=== PATIENT | female | born 1975 | race African-American/Black ===

== ENCOUNTER 2017-08-18 08:26 | Emergency (ER) | payer SELFPAY ==
[2017-08-18 08:47] VITALS: TEMP 99; BMI 21.4
[2017-08-18 10:10] LABS: BASO % 0.4 % (0-2.0); EOS % 0.1 % (0-4.5); HEMATOCRIT 37.7 % (32.4-45.2); HEMOGLOBIN 12.4 GM/dL (10.7-15.3); LYMPH % 12.9 % (8-40); MCH 30.3 pg (25.7-33.7); MCHC 32.9 g/dl (32.0-36.0); MEAN CELL VOLUME 92.1 fl (80-96); MONO % 12.3 % (3.8-10.2); NEUT % 74.3 % (42.8-82.8); PLATELET COUNT 174 K/MM3 (134-434); RBC 4.09 M/mm3 (3.60-5.2); RDW 12.1 % (11.6-15.6); WHITE BLOOD COUNT 9.7 K/mm3 (4.0-10.0)
--- NOTE | 2017-08-18 10:25 | PDOC ---
History of Present Illness - General History Source: Patient Exam Limitations: No Limitations - History of Present Illness Initial Comments: 08/18/17 11:21 The patient is a 42 year old female, with a significant past medical history of Hepatitis B who presents to the emergency department with thoracic pain for the past 1 day. Patient reports sharp R lower thoracic pain, radiating to R shoulder, 10/10 in severity with no associated symptoms. Pain is exacerbated upon positional changes and deep inspiration. Patient reports pain began yesterday however remained constant throughout this morning. Patient is unable to lay down secondary to the pain and reports to the ED for further evaluation. Patient denied any trauma or injury to the area. Patient denies leg swelling, recent travel Patient denies chest pain, headache or dizziness. Patient denies fever, chills, abdominal pain, nausea, vomit, diarrhea or constipation. Patient denies dysuria, frequency, urgency or hematuria. Patient denies sick contacts. Allergies: NKA Past surgical history: None Social history: None PCP: None <Sherin Guzman - Last Filed: 08/18/17 11:21> - General History Source: Patient Exam Limitations: No Limitations <Radha Nava - Last Filed: 08/20/17 07:57> - General Chief Complaint: Pain Stated Complaint: RT SIDE/ARM PAIN Time Seen by Provider: 08/18/17 09:33 Past History <Sherin Guzman - Last Filed: 08/18/17 11:21> - Past Medical History COPD: No Liver Disease: Yes (hep B) - Suicide/Smoking/Psychosocial Hx Smoking History: Never smoked Have you smoked in the past 12 months: No Hx Alcohol Use: No Drug/Substance Use Hx: No Substance Use Type: None <Radha Nava - Last Filed: 08/20/17 07:57> - Past Medical History Allergies/Adverse Reactions: Allergies Allergy/AdvReac Type Severity Reaction Status Date / Time No Known Allergies Allergy Verified 08/18/17 08:43 Home Medications: Ambulatory Orders Lidocaine 5% Patch [Lidoderm Patch -] 1 patch TP DAILY PRN #30 patch 08/18/17 Methocarbamol [Robaxin -] 500 mg PO TID PRN #21 tablet 08/18/17 Naproxen [Naprosyn -] 500 mg PO BID PRN #14 tablet 08/18/17 Review of Systems - Review of Systems Able to Perform ROS?: Yes Comments:: 08/18/17 11:22 GENERAL/CONSTITUTIONAL: No: fever, chills, weakness, loss of appetite. HEAD, EYES, EARS, NOSE AND THROAT: No: change in vision, ear pain, discharge, sore throat, throat swelling. CARDIOVASCULAR: No: chest pain, lightheadedness, palpitations, syncope RESPIRATORY: No: cough, shortness of breath, wheezing, hemoptysis, stridor. GASTROINTESTINAL: No: nausea, vomiting, abdominal cramping, diarrhea, rectal bleeding, constipation. GENITOURINARY: No: dysuria, hematuria, frequency, urgency, flank pain. MUSCULOSKELETAL: +R thoracic pain. No: back pain, neck pain, joint pain, muscle swelling or pain SKIN: No: lesions, pallor, rash or easy bruising. NEUROLOGIC: No: headache, vertigo, paresthesias, weakness ENDOCRINE: No: unexplained weight gain or loss HEMATOLOGIC/LYMPHATIC: No: anemia, easy bleeding, swelling nodes <Sherin Guzman - Last Filed: 08/18/17 11:21> *Physical Exam - Vital Signs Last Vital Signs Temp Pulse Resp BP Pulse Ox 99 F 92 H 19 111/71 97 08/18/17 08:43 08/18/17 08:43 08/18/17 08:43 08/18/17 08:43 08/18/17 08:43 - Physical Exam Comments: 08/18/17 11:22 GENERAL: The patient is in moderate distress. HEAD: Normal with no signs of trauma. EYES: PERRLA, EOMI, sclera anicteric, conjunctiva clear. ENT: Ears normal, nares patent, oropharynx clear without exudates. Moist mucous membranes. NECK: Normal range of motion, supple without lymphadenopathy, JVD, or masses. LUNGS: Breath sounds equal, clear to auscultation bilaterally. No wheezes, and no crackles. HEART:Regular rate and rhythm, normal S1 and S2 without murmur, rub or gallop. ABDOMEN: Soft, nontender, normoactive bowel sounds. No guarding, no rebound. EXTREMITIES: Normal range of motion, no edema. No clubbing or cyanosis. No erythema, or tenderness. NEUROLOGICAL: Cranial nerves II through XII grossly intact. Normal speech. No focal neurological deficits. MUSCULOSKELETAL: Back nontender to palpation, no CVA tenderness SKIN: Warm, Dry, normal turgor, no rashes or lesions noted. <Sherin Guzman - Last Filed: 08/18/17 11:21> - Vital Signs Last Vital Signs Temp Pulse Resp BP Pulse Ox 99 F 92 H 19 111/71 97 08/18/17 08:43 08/18/17 08:43 08/18/17 08:43 08/18/17 08:43 08/18/17 08:43 <Radha Nava - Last Filed: 08/20/17 07:57> ED Treatment Course - LABORATORY CBC & Chemistry Diagram: 08/18/17 10:03 08/18/17 10:03 - ADDITIONAL ORDERS Additional order review: Laboratory Results 08/18/17 08/18/17 10:03 10:03 Sodium 137 Potassium 3.6 Chloride 104 Carbon Dioxide 27 Anion Gap 6 L BUN 5 L Creatinine 0.6 Creat Clearance w eGFR > 60 Random Glucose 90 Calcium 8.6 Total Bilirubin 1.5 H AST 81 H ALT 67 Alkaline Phosphatase 75 Total Protein 8.1 Albumin 3.9 Serum , Qual Negative 08/18/17 10:03 RBC 4.09 MCV 92.1 MCHC 32.9 RDW 12.1 MPV 9.0 Neutrophils % 74.3 Lymphocytes % 12.9 Monocytes % 12.3 H Eosinophils % 0.1 Basophils % 0.4 - Medications Given in the ED: ED Medications Discontinued Medications Generic Name Dose Route Start Last Admin Trade Name Freq PRN Reason Stop Dose Admin Ibuprofen 600 mg 08/18/17 11:05 08/18/17 11:20 Motrin - PO 08/18/17 11:06 600 mg ONCE ONE Administration Morphine Sulfate 4 mg 08/18/17 11:05 08/18/17 11:20 Morphine Injection - IVPUSH 08/18/17 11:06 4 mg ONCE ONE Administration <Sherin Guzman - Last Filed: 08/18/17 11:21> - LABORATORY CBC & Chemistry Diagram: 08/18/17 10:03 08/18/17 10:03 - ADDITIONAL ORDERS Additional order review: 08/18/17 10:03 RBC 4.09 MCV 92.1 MCHC 32.9 RDW 12.1 MPV 9.0 Neutrophils % 74.3 Lymphocytes % 12.9 Monocytes % 12.3 H Eosinophils % 0.1 Basophils % 0.4 <Radha Nava - Last Filed: 08/20/17 07:57> Medical Decision Making - Medical Decision Making 08/18/17 11:15 Pt initially seen in [facility] Akins is a 42-year-old female with a history of hepatitis B who presents emergency department with a complaint of severe right-sided chest pain. Her symptoms started yesterday, no prior episodes like this. She notes severe pain with deep breath, laying back, getting from seated to a standing position. Pain is severe with these position changes and slowly resolves over many minutes. No prior episodes like this. No chest wall trauma. No recent upper respiratory infection, fever, chills, cough. Patient denies nausea, vomiting, diarrhea On examination: No Rash RRR Bilateral breath sounds No abd tenderness Right chest wall is not tender to palpation pt looks uncomfortable when she attempts to sit back Labs sent EKG performed Analgesia given EKG: Normal sinus rhythm, rate of 79 bpm, left axis deviation, no ST elevations or depressions, diffuse T-wave flattening, no pathologic Q waves 08/18/17 11:18 Laboratory Tests 08/18/17 08/18/17 08/18/17 10:03 10:03 10:03 WBC 9.7 Hgb 12.4 Hct 37.7 Plt Count 174 Sodium 137 Potassium 3.6 Chloride 104 Carbon Dioxide 27 Anion Gap 6 L BUN 5 L Creatinine 0.6 Random Glucose 90 Serum , Qual Negative 08/18/17 13:[address] read as (+) for PE Will steph now Will contact hospitalist 08/18/17 14:05 Official CTA: No evidence of PE! Will discharge to home Pt states pain has improved Follow up with PMD Motrin, Robaxin and Lidoderm for pain Clinical Impression: Musculoskeletal pain, initial presentation 08/20/17 07:57 <Radha Nava - Last Filed: 08/20/17 07:57> *DC/Admit/Observation/Transfer - Attestations Scribe Attestion: 08/18/17 11:22 Documentation prepared by Sherin Guzman, acting as medical massage therapist for Radha Nava MD <Sherin Guzman - Last Filed: 08/18/17 11:21> - Discharge Dispostion Admit: No <Radha Nava - Last Filed: 08/20/17 07:57> Diagnosis at time of Disposition: Chest wall pain - Discharge Dispostion Disposition: HOME Condition at time of disposition: Stable - Prescriptions Prescriptions: Lidocaine 5% Patch [Lidoderm Patch -] 1 patch TP DAILY PRN #30 patch PRN Reason: Pain Methocarbamol [Robaxin -] 500 mg PO TID PRN #21 tablet PRN Reason: Pain Naproxen [Naprosyn -] 500 mg PO BID PRN #14 tablet PRN Reason: Pain - Patient Instructions Printed Discharge Instructions: DI for Atypical Chest Pain Additional Instructions: Ms Akins Thank you for coming to the ER today Please review your CT results Please return to the ER for any other concerns or complaints Please take medications as prescribed Please follow up with your PMD in 48 hours - Post Discharge Activity Forms/Work/School Notes: Back to Work
[2017-08-18 10:33] LABS: ALBUMIN 3.9 g/dl (3.4-5.0); ALK PHOS 75 U/L (45-117); ANION GAP 6 (8-16); BILIRUBIN,TOTAL 1.5 mg/dL (0.2-1.0); BLOOD UREA NITROGEN 5 mg/dL (7-18); CALCIUM 8.6 mg/dL (8.5-10.1); CHLORIDE 104 mmol/L (98-107); CO2 27 mmol/L (21-32); CREATININE 0.6 mg/dL (0.55-1.02); GLUCOSE,RANDOM 90 mg/dL (74-106); POTASSIUM 3.6 mmol/L (3.5-5.1); SGOT/AST 81 U/L (15-37); SGPT/ALT 67 U/L (12-78); SODIUM 137 mmol/L (136-145); TOT PROT 8.1 g/dl (6.4-8.2)
[2017-08-18] MEDS ORDERED: IBUPROFEN 600 MG TABLET (FP) PO ONE ×2 (11:05→11:09)
[2017-08-18] MEDS ORDERED: morphine CARPU-JECT 4 MG/1 ML DISP.SYRIN IVPUSH ONE (11:05)
[2017-08-18] MEDS ORDERED: MORPHINE SULFATE 10 MG/1 ML *VIAL ONE (11:09)
[2017-08-18] MEDS ORDERED: MAG HYDROX/AL HYDROX/SIMETH 30 ML UNIT-DOSE CUP ONE (11:14)
[2017-08-18 13:44] LABS: INR 1.32 (0.82-1.09); PROTHROMBIN TIME (PATIENT) 14.9 SEC (9.98-11.88)
[2017-08-18 13:46] LABS: ACTIVATED PTT 32.1 SECONDS (26.9-34.4)
[2017-08-18 14:06] VITALS: BP 107/73; PULSE 69
--- NOTE | 2017-08-19 14:31 | EKG ---
Test Reason : Blood Pressure : / mmHG Vent. Rate : 079 BPM Atrial Rate : 079 BPM P-R Int : 144 ms QRS Dur : 088 ms QT Int : 374 ms P-R-T Axes : -19 -39 017 degrees QTc Int : 428 ms NORMAL SINUS RHYTHM LEFT AXIS DEVIATION ABNORMAL ECG NO PREVIOUS ECGS AVAILABLE Confirmed by MD Jus, Deon ([id number]) on 08/19/2017 2:31:09 PM Referred By: Confirmed By:Deon Luu MD
== END 2017-08-18 14:42 | disposition home or self-care (01) ==
LOC: JER 08:26 → JERFT 08:26 → JER 14:42
PROC: 3E033NZ Introduction of Analgesics, Hypnotics, Sedatives into Peripheral Vein, Percutaneous Approach (ICD-10-PCS; principal; 2017-08-18)
DX: R07.89 Other chest pain (principal)
CPT/HCPCS: 36415; 71046-TC-FY; 71275-TC; 80053; 82272; 84703; 85025; 85379; 85610; 85730; 93005; 93010; 99283-25

== ENCOUNTER 2018-03-15 11:59 | Emergency (ER) | payer OTHER ==
[2018-03-15 12:05] VITALS: BP 96/62; PULSE 100; TEMP 98.5; BMI 22.3
--- NOTE | 2018-03-15 12:31 | PDOC ---
History of Present Illness - General Chief Complaint: Pain Stated Complaint: RIGHT SIDE SHARP PAIN Time Seen by Provider: 03/15/18 12:18 History Source: Patient, Old Records Exam Limitations: No Limitations - History of Present Illness Initial Comments: 03/15/18 12:33 HISTORY OF PRESENT ILLNESS: This is a 42-year-old woman with past medical history of hepatitis B who presents emergency Department with atraumatic right shoulder and right rib pain since awakening on the morning of 03/13. Patient states she was taking Motrin and Lidoderm patches which is minimally helped her pain but his pain is not improved she is seeking care today. Patient states she had similar pain in August of this year had a full workup it was determined to be musculoskeletal in nature. Patient states her pain worsens with abduction of the right shoulder and deep inspiration. Patient denies oral contraceptive use, recent travel, periods of prolonged immobility, fevers, shortness of breath, cough, abdominal pain, nausea, vomiting. No recent travel or sick contacts. PAST MEDICAL HISTORY: HBV SURGICAL HISTORY: Denies ALLERGIES: No known drug allergies REVIEW OF SYSTEMS General/Constitutional: Denies fever or chills. Denies weakness, weight change. HEENT: Denies change in vision. Denies ear pain or discharge. Denies sore throat. Cardiovascular: Denies chest pain or shortness of breath. Respiratory: Denies cough, wheezing, or hemoptysis. Gastrointestinal: Denies nausea, vomiting, diarrhea or constipation. Denies rectal bleeding. Genitourinary: Denies dysuria, frequency, or change in urination. Musculoskeletal: Right shoulder and right rib pain. Skin and breasts: Denies rash or easy bruising. Neurologic: Denies headache, vertigo, loss of consciousness, or loss of sensation. Psychiatric: Denies depression or anxiety. Endocrine: Denies increased thirst. Denies abnormal weight change. Hematologic/Lymphatic: Denies anemia, easy bleeding, or history of blood clots. Allergic/Immunologic: Denies hives or skin allergy. Denies latex allergy. PHYSICAL EXAM General Appearance: Well-appearing, appropriately dressed. No apparent distress , no intoxication. HEENT: EOMI, PERRLA, normal ENT inspection, normal voice, TMs normal, pharynx normal. No conjunctival pallor. No photophobia, scleral icterus. Neck: Supple. Trachea midline. No tenderness, rigidity, carotid bruit, stridor , lymphadenopathy, or thyromegaly. Respiratory/Chest: Lungs CTAB. No shortness of breath, chest tenderness, respiratory distress, accessory muscle use. No crackles, rales, rhonchi, stridor , wheezing, dullness Cardiovascular: RRR. S1, S2. No JVD, murmur, bradycardia, tachycardia. Vascular Pulses: Dorsalis-Pedis (R): 2+, Dorsalis-Pedis (L): 2+ Gastrointestinal/Abdominal: Normal bowel sounds. Abdomen soft, non-distended. No tenderness or rebound tenderness. No organomegaly, pulsatile mass, guarding, hernia, hepatomegaly, splenomegaly. Lymphatic: No adenopathy, tenderness. Musculoskeletal/Extremities: Normal inspection. Restricted ROM of right shoulder 2/2 pain. Normal capillary refill. Pelvis Stable. No CVA tenderness. No tenderness to extremities, pedal edema, swelling, erythema or deformity. Right lateral 6th rib TTP. Integumentary: Appropriate color, dry, warm. No cyanosis, erythema, jaundice or rash Neurologic: front edger II-XII intact. Fully oriented, alert. Appropriate mood/affect. Motor strength 5/5. No appreciable EOM palsy, facial droop or sensory deficit. Past History - Past Medical History Allergies/Adverse Reactions: Allergies Allergy/AdvReac Type Severity Reaction Status Date / Time No Known Allergies Allergy Verified 03/15/18 12:05 Home Medications: Ambulatory Orders NK [No Known Home Medication] 03/15/18 COPD: No Liver Disease: Yes (hep B) - Suicide/Smoking/Psychosocial Hx Smoking History: Never smoked Have you smoked in the past 12 months: No Hx Alcohol Use: No Drug/Substance Use Hx: No Substance Use Type: None *Physical Exam - Vital Signs Last Vital Signs Temp Pulse Resp BP Pulse Ox 98.5 F 100 H 20 96/62 99 03/15/18 12:03 03/15/18 12:03 03/15/18 12:03 03/15/18 12:03 03/15/18 12:03 Medical Decision Making - Medical Decision Making 03/15/18 12:41 A/P: 42-year-old woman with atraumatic right shoulder and right rib pain for 2 days Lungs clear to auscultation bilaterally Right sixth lateral rib tender to palpation Passive range of motion of right shoulder restricted due to pain on abduction No bony deformities or crepitus noted to rib cage or shoulder Strength 5/5 bilateral upper extremities 2+ radial and ulnar pulses bilaterally No tenderness to palpation of bilateral calves Negative Homans sign Pain is most likely musculoskeletal in nature as it was in August on previous visit. At that time patient had a negative CT angiogram for PE performed. Toradol 30 mg IM now X-rays, reassess 03/15/18 13:40 X-rays as read by Dr. Montano body: There is a hairline fracture noted through the region of the right sixth and seventh posterior ribs. Results of the x-ray discussed with patient who recalls falling in her bathtub on 02/28 of this year. Patient states she landed on the edge of the bathtub on her right ribs. I will discharge the patient home with incentive spirometer. Splinting for coughing and deep breathing was discussed with the patient who verbalized understanding. Patient alert he has an appointment with her primary doctor in April was advised that she call her primary doctor for reevaluation within the next week given she has new findings. Patient verbalizes understanding of discharge instructions. *DC/Admit/Observation/Transfer Diagnosis at time of Disposition: Multiple rib fractures Qualifiers: Encounter type: initial encounter Fracture type: closed Laterality: right Qualified Code(s): S22.41XA - Multiple fractures of ribs, right side, initial encounter for closed fracture - Discharge Dispostion Disposition: HOME Condition at time of disposition: Stable Decision to Admit order: No - Referrals - Patient Instructions Printed Discharge Instructions: DI for Rib Fracture Additional Instructions: Use incentive spirometer 10 times every hour for the next 7 days. Use rib splinting techniques as instructed to help with coughing and deep breathing exercises. Take Tylenol or Motrin as needed for pain. Follow manufacture's instructions for appropriate dosage. Return to emergency department for any fevers, chills, worsening pain, shortness of breath or any other concerns. - Post Discharge Activity Forms/Work/School Notes: Back to Work
[2018-03-15] MEDS ORDERED: KETOROLAC TROMETHAMINE 30 MG/1 ML VIAL IM ONE (12:32)
[2018-03-15] MEDS ORDERED: KETOROLAC TROMETHAMINE 30 MG/1 ML VIAL ONE (12:39)
== END 2018-03-15 14:11 | disposition home or self-care (01) ==
LOC: JERFT 11:59
PROC: 3E0233Z Introduction of Anti-inflammatory into Muscle, Percutaneous Approach (ICD-10-PCS; principal; 2018-03-15)
DX: S22.41XA Multiple fractures of ribs, right side, initial encounter for closed fracture (principal); W18.2XXA Fall in (into) shower or empty bathtub, initial encounter; Y93.F1 Activity, caregiving, bathing; Y92.012 Bathroom of single-family (private) house as the place of occurrence of the external cause; Y99.8 Other external cause status
CPT/HCPCS: 71046-TC-FY; 73030-TC-RT-FY; 96372; 99281-25